=== PATIENT | female | born 1940 | race Caucasian/White ===

== ENCOUNTER 2018-07-09 10:52 | Emergency (ER) | payer OTHER, MEDICAID ==
[~2018-07-09] VITALS: Ht 160 cm; Wt 81.6 kg
[2018-07-09] MEDS ORDERED: MINERAL OIL 30 ML PO ONE (11:15)
[2018-07-09] MEDS ORDERED: FLEET ENEMA(ADULT) 135 ML PR ONE (11:15)
[2018-07-09] MEDS ORDERED: DOCUSATE SOD 100 MG CAP PO ONE (12:00)
[2018-07-09] MEDS ORDERED: GLYCERIN ADULT RECTAL SUPP PR ONE (13:00)
[2018-07-09] MEDS ORDERED: MAGNESIUM CITRATE SOLUTION 300 ML BTL PO ONE (13:00)
[2018-07-09 13:56] VITALS: BP 162/92
[2018-07-09] MEDS ORDERED: PANTOPRAZOLE 40 MG TAB PO ONE (14:30)
== END 2018-07-09 15:58 | disposition home or self-care (01) ==
LOC: ER 10:54
DX: K59.00 Constipation, unspecified (principal); E78.5 Hyperlipidemia, unspecified; Z90.49 Acquired absence of other specified parts of digestive tract; Z90.710 Acquired absence of both cervix and uterus
CPT/HCPCS: 74018